=== PATIENT | female | born 2000 | race Caucasian/White ===

== ENCOUNTER 2024-02-28 13:52 | Emergency (ER) | payer MEDICAID ==
[~2024-02-28] VITALS: Ht 167.6 cm; Wt 154.0 kg
[2024-02-28 14:02] VITALS: BP 128/85; PULSE 102; RESP 18; O2SAT 99
[2024-02-28 15:54] VITALS: TEMP 98.3
[2024-02-28] MEDS: ACETAMINOPHEN 325MG TABLET PO ONE (15:54)
[2024-02-28] MEDS: DEXAMETHASONE 4MG/ML 1ML VIAL IM ONE (15:55)
[2024-02-28] MEDS ORDERED: ACET-2708 MT (16:06)
[2024-02-28] MEDS ORDERED: AMOX-494 MT (16:06)
== END 2024-02-28 17:39 | disposition home or self-care (01) ==
LOC: ER 13:58
DX: J02.0 Streptococcal pharyngitis (principal); Z88.6 Allergy status to analgesic agent; Z88.8 Allergy status to other drugs, medicaments and biological substances
CPT/HCPCS: 99283; 81025; 87430; 96372; J1100